=== PATIENT | male | born 1995 | race African-American/Black ===

== ENCOUNTER 2017-08-09 18:28 | Emergency (ER) | payer SELFPAY ==
[~2017-08-09] VITALS: Ht 188 cm; Wt 86.1 kg
[~2017-08-09 18:28] MED LIST: INTUNIV3 MG PO; ISONIAZID,INH300 MG PO; SINGULAIR10 MG PO; VITAMIN B-650 MG PO
[2017-08-09 18:33] VITALS: BP 117/70
[2017-08-09 18:49] LABS: SOURCE URINE
[2017-08-09 18:57] LABS: APPEARANCE CLEAR ((CLEAR)); BILIRUBIN NEGATIVE; BLOOD NEGATIVE; COLOR AMBER ((YELLOW)); GLUCOSE (STRIP) NEGATIVE; KETONES 5; LEUKOCYTES SMALL; NITRITE NEGATIVE; PROTEIN (STRIP) 30; SPECIFIC GRAVITY 1.028 (1.000-1.030)
[2017-08-09 19:33] LABS: RED BLOOD CELLS RARE /HPF (0-5); WHITE BLOOD CELLS 30-40 /HPF (0-5)
[2017-08-09 19:34] LABS: BACTERIA RARE /HPF; EPITHELIAL CELLS RARE /HPF; MUCUS 2+ /LPF; UCUL ADDED? YES
[2017-08-12 15:01] LABS: CHLAMYDIA TRACHOMATIS POSITIVE; NEISSERIA GONORRHOEAE NEGATIVE
== END 2017-08-09 19:39 | disposition home or self-care (01) ==
LOC: EXP 18:28 → EME 18:28 → EXP 19:39
DX: Z20.2 Contact with and (suspected) exposure to infections with a predominantly sexual mode of transmission (principal); Z11.3 Encounter for screening for infections with a predominantly sexual mode of transmission; F17.200 Nicotine dependence, unspecified, uncomplicated
CPT/HCPCS: 81003; 87086; 87491; 87591; 99281; 99282; J0696